=== PATIENT | male | born 1950 | race Caucasian/White ===

== ENCOUNTER → 2020-01-30 13:02 | Outpatient (CLI) | payer MEDICARE, SELFPAY ==
[2020-01-31 13:17] LABS: COVID19 Sendout NOT DETECTED
== END ==
PROVIDERS: Visit Provider Physician Assistant
DX: Z01.818 Encounter for other preprocedural examination (principal)
CPT/HCPCS: 87635

== ENCOUNTER 2020-02-02 06:35 | Day surgery (SDC) | payer MEDICARE, SELFPAY ==
[2020-01-25 10:57] VITALS: BMI 39.3
[2020-02-02] VITALS (7 sets, daily range): BP systolic 116–169; BP diastolic 65–90; PULSE 50–64; RESP 11–24; TEMP 36.1–36.4; O2SAT 92–98; BMI 40.6
[2020-02-02] MEDS: LACTATED RINGERS 1,000 ML 42 ML IV (07:28)
--- NOTE | 2020-02-02 07:42 | PM.PREOP ---
Pre-operative Note Interval Note History & Physical reviewed/Exam performed by Physician: Yes Changes to H&P: No H&P completed within 30 days and has changed as indicated here:: There are no changes to the history and physical examination scanned on file.
[2020-02-02] MEDS: CIPROFLOXACIN 400 MG/200 ML PIGGYBACK 200 MG IV (07:55)
--- NOTE | 2020-02-02 08:16 | SUR.OPER ---
Lithotomy on padded OR bed, head on pillow, arms secured on padded arm boards at <90 degrees abduction. Legs secured in padded yellow fins stirrups.
[2020-02-02] MEDS: BELLADONNA/OPIUM SUPPOSITORIES 1 EACH PR (08:22)
--- NOTE | 2020-02-02 08:25 | P.OP_ITS ---
Operative Date/Time/Diagnoses Date of procedure: 02/02/20 Time of procedure: 08:25 Pre-op diagnosis: 1. Bladder neck contracture. 2. Urinary retention. Post-op diagnosis: same Procedure & Clinicians Same procedure as scheduled: Yes
--- NOTE | 2020-02-02 08:25 | PM.OP.1 ---
Operative Date/Time/Diagnoses Date of procedure: 02/02/20 Time of procedure: 08:25 Pre-op diagnosis: 1. Bladder neck contracture. 2. Urinary retention. Post-op diagnosis: same Procedure & Clinicians Same procedure as scheduled: Yes
--- NOTE | 2020-02-02 08:28 | PM.OP.1 ---
Operative Date/Time/Diagnoses Date of procedure: 02/02/20 Time of procedure: 08:28 Pre-op diagnosis: 1. Bladder neck contracture. 2. Urinary retention. Post-op diagnosis: same Procedure & Clinicians Procedure: 1. Cystoscopy and radial incision of bladder neck contracture. Same procedure as scheduled: Yes Indications: 1. Bladder neck contracture. 2. Urinary retention. Surgeon: Valencia Jo Click Yes if Unassisted: Yes Anesthesia Type: General Operative Notes Findings: 1. Penile bulbar urethra normal. 2. External sphincter slightly gaping. 3. Prostate status post resection widely patent. 4. Bladder neck contracture-3 [place]. 5. Bladder 1 to 2+ trabeculation normal orifices bilaterally no stone tumor foreign body visualized. Closure Type: not applicable Specimen(s): none sent Applied: catheter (#20F) Estimated Blood Loss (mL): 0 Blood products transfused: none Tourniquet time (min): 0 Procedure in detail: The patient was positioned supine was administered general anesthesia. He was he was then repositioned in semi lithotomy in the lower abdomen genitalia and groin were prepped and draped in sterile fashion. The 22 [place] urethra tome was then passed of the low lower urinary track with the findings as described above. The cold knife was then utilized to make radial incisions through the small os of the bladder neck contracture. This is the result was a widely patent bladder neck. There was a small amount of bleeding not requiring electric cautery. The bladder was left partially filled and a 20 [place] silicone Yan catheter was inserted. The balloon was inflated to 15 cc. It was then connected to gravity drainage. The patient was then repositioned in supine. Patient was then awakened, transferred to [facility], and transferred recovery in stable condition. Complications: none Post-operative Condition: stable Disposition: PACU Plan for aftercare: Discharge home
--- NOTE | 2020-02-02 09:53 | SUR.PHASEII ---
pt is a/o x4. reviewed d/c instructions with pt. reviewed medications with pt. He is currently awaiting arrival of his ride, enjoying coffee.
== END 2020-02-02 09:52 | disposition home or self-care (01) ==
PROVIDERS: Referring Provider Specialist; Visit Provider Specialist
PROC: 0TJB8ZZ Inspection of Bladder, Via Natural or Artificial Opening Endoscopic (ICD-10-PCS; CPT 52000; principal; 2020-02-02 07:45)
PROC: 0TBC8ZZ Excision of Bladder Neck, Via Natural or Artificial Opening Endoscopic (ICD-10-PCS; CPT 52500; 2020-02-02 07:45)
DX: N32.0 Bladder-neck obstruction (principal); R33.9 Retention of urine, unspecified; Z87.440 Personal history of urinary (tract) infections; E66.01 Morbid (severe) obesity due to excess calories; I10 Essential (primary) hypertension; E78.5 Hyperlipidemia, unspecified; I42.2 Other hypertrophic cardiomyopathy; Z86.711 Personal history of pulmonary embolism; Z79.01 Long term (current) use of anticoagulants; I25.2 Old myocardial infarction; Z86.73 Personal history of transient ischemic attack (TIA), and cerebral infarction without residual deficits
CPT/HCPCS: 52500; J0744; J1100; J2250; J2405; J2704; J3010